=== PATIENT | female | born 1955 ===

== ENCOUNTER 2021-04-14 16:45 | Emergency (ER) | payer OTHER ==
[~2021-04-14] VITALS: Ht 154.9 cm; Wt 85.5 kg
[2021-04-14 17:42] VITALS: TEMP 99.6
[2021-04-14 18:14] LABS: BASO % 0.2 % (0.0-2.0); EOS % 0.2 % (0.0-4.0); GRAN # 2.4 K/mm3 (1.4-6.5); GRAN % 58.5 % (42.2-75.2); HEMATOCRIT 45.9 % (37.0-47.0); LYMPH # 1.1 K/mm3 (1.2-3.4); LYMPH % 26.5 % (20.0-51.0); MEAN CELL VOLUME 82 fl (80.0-100.0); MEAN CORPUSCULAR HEMOGLOBIN 27 pg (27-31); MEAN CORPUSCULAR HGB CONC 33 g/dl (33.0-37.0); MONO # 0.6 K/mm3 (0.1-0.6); MONO % 14.6 % (1.7-9.3); PLATELET COUNT 246 K/mm3 (130-400); RED BLOOD COUNT 5.57 M/mm3 (4.10-5.30); REDCELL DISTRIBUTION WIDTH-CV 14.4 % (11.5-14.5)
[2021-04-14 18:19] LABS: PROTHROMBIN TIME 11.6 SECONDS (9.7-12.8)
[2021-04-14 18:21] LABS: PARTIAL THROMBOPLASTIN TIME 31.2 SECONDS (26.0-37.0)
[2021-04-14 18:31] LABS: ALANINE AMINOTRANSFERASE 14 U/L (0-55); ALBUMIN 3.9 gm/dL (3.4-4.8); ALKALINE PHOSPHATASE 124 U/L (40-150); ANION GAP 15 mmol/L (7-16); AST,SGOT 28 U/L (5-34); BILIRUBIN,TOTAL 0.4 mg/dL (0.2-1.2); BLOOD UREA NITROGEN 18 mg/dL (10-20); CALCIUM 8.7 mg/dL (8.4-10.2); CARBON DIOXIDE 22 mmol/L (23-31); CHLORIDE 100 mmol/L (98-107); CREATININE, serum 0.89 mg/dL (0.57-1.11); GLUCOSE 84 mg/dL (70-99); POTASSIUM 3.3 mmol/L (3.5-4.5); SODIUM 137 mmol/L (136-145); TOTAL PROTEIN 7.6 gm/dL (6.2-8.1)
[2021-04-14 18:40] LABS: TROPONIN-I < 0.010 ng/mL (0.00-0.033)
[2021-04-14 21:08] VITALS: BP 120/67; PULSE 62
== END 2021-04-14 21:15 | disposition home or self-care (01) ==
LOC: COL.ER 16:45
PROVIDERS: Emergency Medicine
DX: U07.1 COVID-19 (principal); I10 Essential (primary) hypertension
CPT/HCPCS: J2405; J7030

== ENCOUNTER 2021-04-19 20:45 | Emergency (ER) | payer OTHER ==
[~2021-04-19] VITALS: Ht 154.9 cm; Wt 81.8 kg
[2021-04-19 20:52] VITALS: TEMP 97.2
[2021-04-19 21:46] LABS: BASO % 0.3 % (0.0-2.0); EOS # 0.1 K/mm3 (0.0-0.7); EOS % 2.4 % (0.0-4.0); GRAN # 4.2 K/mm3 (1.4-6.5); GRAN % 70.3 % (42.2-75.2); HEMATOCRIT 44.1 % (37.0-47.0); HEMOGLOBIN 13.8 g/dl (12.5-16.0); LYMPH % 17.2 % (20.0-51.0); MEAN CELL VOLUME 84 fl (80.0-100.0); MEAN CORPUSCULAR HEMOGLOBIN 26 pg (27-31); MEAN CORPUSCULAR HGB CONC 31 g/dl (33.0-37.0); MEAN PLATELET VOLUME 11.6 fl (7.4-10.4); MONO # 0.6 K/mm3 (0.1-0.6); MONO % 9.5 % (1.7-9.3); PLATELET COUNT 236 K/mm3 (130-400); RED BLOOD COUNT 5.25 M/mm3 (4.10-5.30)
[2021-04-19 22:06] LABS: ALBUMIN 3.7 gm/dL (3.4-4.8); BILIRUBIN,TOTAL 0.5 mg/dL (0.2-1.2); CALCIUM 8.7 mg/dL (8.4-10.2); CREATININE, serum 1.03 mg/dL (0.57-1.11); POTASSIUM 3.1 mmol/L (3.5-4.5); TOTAL PROTEIN 7.4 gm/dL (6.2-8.1)
[2021-04-20 00:44] VITALS: BP 136/80; PULSE 70
== END 2021-04-20 00:44 | disposition home or self-care (01) ==
LOC: COL.ER 20:45
PROVIDERS: Student in an Organized Health Care Education/Training Program
DX: R53.81 Other malaise (principal); I10 Essential (primary) hypertension; E78.00 Pure hypercholesterolemia, unspecified; Z79.899 Other long term (current) drug therapy

== ENCOUNTER → 2021-06-14 | Emergency (ER) | payer OTHER ==
[~2021-06-14] VITALS: Ht 154.9 cm; Wt 84.5 kg
[2021-06-14 04:14] VITALS: TEMP 97.7
[2021-06-14 04:38] LABS: BASO % 0.5 % (0.0-2.0); EOS # 0.3 K/mm3 (0.0-0.7); GRAN # 4.7 K/mm3 (1.4-6.5); GRAN % 54.5 % (42.2-75.2); HEMATOCRIT 38.8 % (37.0-47.0); HEMOGLOBIN 12.6 g/dl (12.5-16.0); LYMPH # 2.7 K/mm3 (1.2-3.4); LYMPH % 30.6 % (20.0-51.0); MEAN CELL VOLUME 84 fl (80.0-100.0); MEAN CORPUSCULAR HEMOGLOBIN 27 pg (27-31); MEAN CORPUSCULAR HGB CONC 33 g/dl (33.0-37.0); MEAN PLATELET VOLUME 10.9 fl (7.4-10.4); MONO % 11.1 % (1.7-9.3); PLATELET COUNT 314 K/mm3 (130-400); RED BLOOD COUNT 4.61 M/mm3 (4.10-5.30); REDCELL DISTRIBUTION WIDTH-CV 15.1 % (11.5-14.5)
[2021-06-14 04:52] LABS: COLLECTION METHOD CLEAN CATCH
[2021-06-14 04:58] LABS: ALBUMIN 3.8 gm/dL (3.4-4.8); BILIRUBIN,TOTAL 0.3 mg/dL (0.2-1.2); C-REACTIVE PROTEIN 0.53 mg/dL (0.00-0.50); CREATININE, serum 0.77 mg/dL (0.57-1.11); TOTAL PROTEIN 7.2 gm/dL (6.2-8.1)
[2021-06-14 04:59] LABS: PH 6 (5-8); SQUAMOUS EPITHELIAL 0-2 /hpf (0-10); URINE APPEARANCE Clear (CLEAR/HAZY); URINE BACTERIA Rare /hpf (NONE SEEN); URINE BILIRUBIN Negative (NEGATIVE); URINE BLOOD Negative (NEGATIVE); URINE COLOR Colorless (YELLOW); URINE GLUCOSE Negative (NEGATIVE); URINE KETONE Negative (NEGATIVE); URINE LEUKOCYTE ESTERASE Negative (NEGATIVE); URINE NITRATE Negative (NEGATIVE); URINE PROTEIN(semi-quant) Negative (NEGATIVE); URINE RBC 0-2 /hpf (0-2); URINE UROBILINOGEN Negative (NEGATIVE)
[2021-06-14 09:22] VITALS: BP 121/69; PULSE 70
== END ==
LOC: COL.ER 04:10
PROVIDERS: Emergency Medicine
DX: R10.12 Left upper quadrant pain (principal); I48.91 Unspecified atrial fibrillation; Z90.49 Acquired absence of other specified parts of digestive tract; Z86.16 Personal history of COVID-19; Z79.01 Long term (current) use of anticoagulants
CPT/HCPCS: J1170; J1885; J2060; J2405; J3010; J7030; Q9967

== ENCOUNTER → 2022-06-10 | Outpatient (CLI) | payer OTHER | LOC: COL.RAD 08:38 | DX: E05.90 Thyrotoxicosis, unspecified without thyrotoxic crisis or storm (principal) | CPT/HCPCS: A9575 ==

== ENCOUNTER → 2023-01-27 | Outpatient (CLI) | payer MEDICARE ==
[~2023-01-27] MED LIST: CYMBALTA 30MG30 MG; FERROUSAL325 MG PO; HYZAAR 50-12.1 UDTAB PO; LIPITOR 10MG10 MG PO; LYVISPAH5 MG PO; PROTONIX 40MG T40 MG PO; TOPAMAX 25MG25 M1 PO; VITAMIN D362.5 MC1; ZINC SULFATE
== END ==
LOC: MHCPAIN 13:18
DX: M48.02 Spinal stenosis, cervical region (principal); M47.892 Other spondylosis, cervical region; M54.12 Radiculopathy, cervical region
CPT/HCPCS: G0463

== ENCOUNTER → 2023-02-25 | Outpatient (CLI) | payer MEDICARE | LOC: MHCPAIN 13:31 | DX: M47.892 Other spondylosis, cervical region (principal); M54.12 Radiculopathy, cervical region; M48.02 Spinal stenosis, cervical region | CPT/HCPCS: G0463 ==

== ENCOUNTER 2023-03-24 09:24 | Emergency (ER) | payer MEDICARE ==
[~2023-03-24] VITALS: Ht 154.9 cm; Wt 80.9 kg
[2023-03-24 09:29] VITALS: BP 148/75; TEMP 97.9
[2023-03-24] MEDS ORDERED: FLEXERIL 1010 MG/TAB PO (10:17)
[2023-03-24] MEDS ORDERED: NORCO 325 MG-51 TAB PO (10:17)
[2023-03-24 10:32] VITALS: PULSE 76
== END 2023-03-24 10:33 | disposition home or self-care (01) ==
LOC: COL.ER 09:24
DX: S39.012A Strain of muscle, fascia and tendon of lower back, initial encounter (principal); M54.16 Radiculopathy, lumbar region; Z87.39 Personal history of other diseases of the musculoskeletal system and connective tissue; W19.XXXA Unspecified fall, initial encounter
CPT/HCPCS: J1885; J3360

== ENCOUNTER 2023-03-25 09:11 | Outpatient (RCR) | payer MEDICARE ==
[~2023-03-25 09:11] MED LIST changes: +FLEXERIL 1010 MG/TAB PO; +NORCO 325 MG-51 TAB PO
== END 2023-03-29 | disposition home or self-care (01) ==
LOC: WSPT
DX: M54.12 Radiculopathy, cervical region (principal)

== ENCOUNTER 2023-04-27 09:45 | Outpatient (RCR) | payer MEDICARE | END 2023-04-29 | disposition home or self-care (01) | LOC: WSPT | DX: M54.12 Radiculopathy, cervical region (principal) ==

== ENCOUNTER 2023-05-07 09:00 | Outpatient (RCR) | payer MEDICARE | END 2023-05-28 | disposition home or self-care (01) | LOC: WSPT | DX: M54.12 Radiculopathy, cervical region (principal) ==

== ENCOUNTER 2023-11-01 17:10 | Emergency (ER) | payer MEDICARE ==
[~2023-11-01] VITALS: Ht 154.9 cm; Wt 80.7 kg
[~2023-11-01 17:10] MED LIST changes: +COLESTID 1GM1 G PO; -CYMBALTA 30MG30 MG; +CYMBALTA 30MG30 MG PO; +FLEXERIL5 MG PO; +HYZAAR 25 MG-101 TAB PO; -HYZAAR 50-12.1 UDTAB PO; +LYRICA 25MG CAP25 MG PO; +MYLANTA COAT-C355 ML PO; +PROLIA60 MG/ML SQ; +VICTOZA6 MG/ML SQ
[2023-11-01 17:30] VITALS: TEMP 98.3
[2023-11-01] MEDS ORDERED: Morphine 4 MG/ML VIAL IV ONE (19:30)
[2023-11-01 20:45] VITALS: BP 149/103; PULSE 66
[2023-11-01] MEDS ORDERED: Lidocaine 4% Topical Patch TP ONE (20:45)
== END 2023-11-01 20:42 | disposition home or self-care (01) ==
LOC: COL.ER 17:10
DX: M25.551 Pain in right hip (principal)
CPT/HCPCS: J2270